=== PATIENT | male | born 1955 | race Caucasian/White ===

== ENCOUNTER 2019-10-13 01:51 | Emergency (ER) | payer BC ==
--- NOTE | 2019-10-13 02:08 | EDM.PDOC ---
ED HPI GENERAL MEDICAL PROBLEM - General Chief Complaint: Respiratory Problem Stated Complaint: BAD COUGH Time Seen by Provider: 10/13/19 03:00 Source of Information: Reports: Patient, RN, RN Notes Reviewed History Limitations: Reports: No Limitations - History of Present Illness INITIAL COMMENTS - FREE TEXT/NARRATIVE: patient presents to ER with complaint of cough that is worse at night when he tries to lay down and sleep. Patient states he rarely coughs up whitish sputum. Denies any fever or chills. Patient states he is not a smoker, quit 23 years ago. Onset: Gradual - Related Data Allergies Allergy/AdvReac Type Severity Reaction Status Date / Time Penicillins Allergy Rash Verified 10/13/19 01:56 Home Meds: Home Meds . [No Known Home Meds] 10/13/19 [History] Past Medical History - Past Health History Medical/Surgical History: Denies Medical/Surgical History Social & Family History - Tobacco Use Smoking Status *Q: Never Smoker Second Hand Smoke Exposure: No - Recreational Drug Use Recreational Drug Use: No ED ROS GENERAL - Review of Systems Review Of Systems: Comprehensive ROS is negative, except as noted in HPI. ED EXAM, GENERAL - Physical Exam Exam: See Below Exam Limited By: No Limitations General Appearance: Alert, WD/WN, No Apparent Distress Eye Exam: Bilateral Eye: EOMI, Normal Inspection Ears: Normal External Exam, Hearing Grossly Normal Nose: Normal Inspection Throat/Mouth: Normal Inspection, Normal Voice, No Airway Compromise Head: Atraumatic, Normocephalic Neck: Normal Inspection, Supple, Non-Tender, Full Range of Motion Respiratory/Chest: No Respiratory Distress, Lungs Clear, Normal Breath Sounds, No Accessory Muscle Use, Chest Non-Tender, Decreased Breath Sounds Cardiovascular: Normal Peripheral Pulses, Regular Rate, Rhythm, No Edema, No Gallop, No JVD, No Murmur, No Rub Peripheral Pulses: 2+: Radial (L), Radial (R) GI/Abdominal: Normal Bowel Sounds, Soft, Non-Tender (Male) Exam: Deferred Rectal (Males) Exam: Deferred Back Exam: Normal Inspection, Full Range of Motion, NT Extremities: Normal Inspection, Normal Range of Motion, Non-Tender, Normal Capillary Refill, No Pedal Edema Neurological: Alert, Oriented, CN II-XII Intact, Normal Cognition, Normal Gait, Normal Reflexes, No Motor/Sensory Deficits Psychiatric: Normal Affect, Normal Mood Skin Exam: Warm, Dry, Intact, Normal Color, No Rash Lymphatic: No Adenopathy Course - Vital Signs Last Recorded V/S: Last Vital Signs Temp 98.3 F 10/13/19 01:53 Pulse 90 10/13/19 01:53 Resp 18 10/13/19 01:53 BP 161/89 H 10/13/19 01:53 Pulse Ox 99 10/13/19 01:53 - Orders/Labs/Meds Orders: Active Orders 24 hr Category Date Time Status Chest 2V [CR] Stat Exams 10/13/19 03:07 Taken Meds: Medications Discontinued Medications Generic Name Dose Route Start Last Admin Trade Name Freq PRN Reason Stop Dose Admin Guaifenesin/Codeine Phosphate 5 ml 10/13/19 03:07 10/13/19 03:12 Robitussin Ac PO 10/13/19 03:08 5 ml ONETIME ONE Administration - Radiology Interpretation Free Text/Narrative:: chest x-ray: FINDINGS: Lungs: Unremarkable. No consolidation. Pleural space: Unremarkable. No pleural effusion. No pneumothorax. Heart/Mediastinum: Unremarkable. No cardiomegaly. Bones/joints: Unremarkable. IMPRESSION: No acute findings. Thank you for allowing us to participate in the care of your patient. Dictated and Authenticated by: Francisco Javier Finn MD 10/13/2019 4:01 AM Central Time ([place] & [place]) See radiologist's report Departure - Departure Time of Disposition: 04:03 Disposition: Home, Self-Care 01 Condition: Fair Clinical Impression: Cough - Discharge Information *PRESCRIPTION DRUG MONITORING PROGRAM REVIEWED*: No *COPY OF PRESCRIPTION DRUG MONITORING REPORT IN PATIENT STEPHANY: No Instructions: Cough, Adult, [id number] Forms: ED Department Discharge Additional Instructions: RX: Robitussin with Codeine Follow up with your primary care facility if no improvement Sleep with head elevated approximately 30 degrees until cough resolves Sepsis Event Note - Evaluation Sepsis Screening Result: No Definite Risk - Focused Exam Vital Signs: Vital Signs Temp Pulse Resp BP Pulse Ox 10/13/19 01:53 98.3 F 90 18 161/89 H 99 Date Exam was Performed: 10/13/19 Time Exam was Performed: 04:03 - My Orders Last 24 Hours: My Active Orders 10/13/19 03:07 Chest 2V [CR] Stat - Assessment/Plan Last 24 Hours: My Active Orders 10/13/19 03:07 Chest 2V [CR] Stat
[2019-10-13] MEDS ORDERED: Codeine/guaiFENesin 100-10 MG/5 ML Syrup 5 ML Cup PO ONE (03:07)
== END 2019-10-13 04:14 | disposition home or self-care (01) ==
LOC: DL.ED 01:51
DX: R05 Cough (principal); Z88.0 Allergy status to penicillin
CPT/HCPCS: 71046; 99283; A9270

== ENCOUNTER 2023-08-07 10:32 | Emergency (ER) | payer MEDICARE, BC ==
[2023-08-07 11:43] LABS: CORONAVIRUS COVID-19 NAA NEGATIVE (NEGATIVE); INFLUENZA A NAA POSITIVE (NEGATIVE); INFLUENZA B NAA NEGATIVE (NEGATIVE); RESPIRATORY SYNCYTIAL VIR NAA NEGATIVE (NEGATIVE)
[2023-08-07] MEDS ORDERED: Albuterol 6.7 GM Inhaler INH ONE (11:55)
[2023-08-07] MEDS ORDERED: predniSONE 20 MG Tab PO ONE (11:56)
[2023-08-07] MEDS ORDERED: Benzonatate 100 MG Cap PO ONE (11:56)
== END 2023-08-07 12:39 | disposition home or self-care (01) ==
LOC: DL.ED 10:32
DX: R07.81 Pleurodynia (principal); J10.1 Influenza due to other identified influenza virus with other respiratory manifestations; Z87.891 Personal history of nicotine dependence; Z20.822 Contact with and (suspected) exposure to COVID-19; Z88.0 Allergy status to penicillin
CPT/HCPCS: 0241U; 71046; 87081; 87430; 94010; 94640; 94667; 99285; A9270; J7512; 99284